=== PATIENT | male | born 2000 | race Two or more races ===

== ENCOUNTER 2023-08-15 23:01 | Emergency (ER) | payer SELFPAY ==
[2023-08-15 23:24] LABS: BASOPHILS PERCENT AUTO 0.3 % (0.0-1.0); EOSINOPHILS ABSOLUTE AUTO 0.1 K/mm3 (0.0-0.4); EOSINOPHILS PERCENT AUTO 1.1 % (0.0-6.0); HEMOGLOBIN 16.8 gm/dl (14.0-18.0); IMMATURE GRAN ABSOLUTE AUTO 0.03 K/mm3 (0.00-0.05); IMMATURE GRAN PERCENT AUTO 0.3 % (0.0-0.4); LYMPHOCYTES ABSOLUTE AUTO 3.9 K/mm3 (1.0-4.8); LYMPHOCYTES PERCENT AUTO 37.9 % (24.0-44.0); MEAN CORPUSCULAR HEMOGLOBIN 29.9 pg (28.0-32.0); MEAN CORPUSCULAR HGB CONC 35.7 g/dl (32.0-36.0); MEAN CORPUSCULAR VOLUME 83.8 fl (83.0-99.0); MEAN PLATELET VOLUME 9.6 fl (9.4-12.4); MONOCYTES ABSOLUTE AUTO 0.6 K/mm3 (0.0-0.8); MONOCYTES PERCENT AUTO 6.1 % (0.0-8.0); NEUTROPHILS ABSOLUTE AUTO 5.6 K/mm3 (1.8-7.7); NEUTROPHILS PERCENT AUTO 54.3 % (41.0-71.0); PLATELET COUNT,PLT 324 K/mm3 (150-400); RED BLOOD CELL COUNT 5.61 M/mm3 (4.52-5.90); WHITE BLOOD CELL COUNT,WBC 10.21 K/mm3 (3.9-11.3)
[2023-08-15 23:35] LABS: INR 1.03
[2023-08-15 23:37] LABS: A/G RATIO 1.4 (1-2); ALBUMIN 4.6 g/dl (3.4-5.0); ANION GAP 22.4 (5-15); BILIRUBIN TOTAL 1.4 mg/dL (0.2-1.0); BUN/CREATININE RATIO 11.8 (14-18); CALCIUM 8.2 mg/dL (8.5-10.1); CREATININE 1.1 mg/dL (0.7-1.3); EST CRCL DRUG DOSING (CG) 95.06 mL/min; ETHANOL BLOOD MEDICAL 0.24 gm% (0.00)
[2023-08-15 23:43] LABS: POTASSIUM,K 2.4 mEq/L (3.5-5.1)
[2023-08-16] MEDS ORDERED: Lactated Ringers 2,000 ML IV ONE (00:23)
[2023-08-16] MEDS ORDERED: Potassium Chloride 20 MEQ Tab.ER PO ONE (00:24)
[2023-08-16 00:37] LABS: APPEARANCE,URINE CLEAR (Clear); BILIRUBIN,URINE NEGATIVE (Negative); COLOR,URINE LIGHT YELLOW (Yellow); GLUCOSE,URINE NEGATIVE (Negative); KETONES,URINE NEGATIVE (Negative); LEUKOCYTE ESTERASE,URINE NEGATIVE (Negative); NITRITE,URINE NEGATIVE (Negative); OCCULT BLOOD,URINE TRACE-LYSED (Negative); PH,URINE 6.5 (5.0-8.0); PROTEIN,URINE NEGATIVE (Negative); UROBILINOGEN,URINE 0.2 (0.2-1.0)
[2023-08-16 00:46] LABS: BACTERIA,URINE RARE /hpf (FEW); BARBITURATE SCREEN,URINE NEGATIVE (CUTOFF=200); BENZODIAZEPINES SCREEN,URINE NEGATIVE (CUTOFF=150); BUPRENORPHINE SCREEN,URINE NEGATIVE (CUTOFF=10); EPITHELIAL CELLS,URINE 0-5 /hpf (0-5); METHADONE SCREEN, URINE NEGATIVE (CUT0FF=200); METHAMPHETAMINES SCREEN, URINE NEGATIVE (CUTOFF=500); OXYCODONE SCREEN,URINE NEGATIVE (CUT0FF=100); PROPOXYPHENE SCREEN,URINE NEGATIVE (CUTOFF=300); RBC,URINE 0-5 /hpf (0-5); THC SCREEN,URINE 20 NG/ML NEGATIVE (CUTOFF=50); WBC,URINE 0-5 /hpf (0-5)
[2023-08-16 00:47] LABS: AMORPHOUS SEDIMENT,URINE RARE /hpf (NOT SEEN); MUCUS,URINE NOT SEEN /hpf (FEW)
[2023-08-16 00:59] LABS: AMPHETAMINES SCREEN, URINE NEGATIVE (CUTOFF=500)
[2023-08-16 02:29] LABS: ANION GAP 17.2 (5-15); BUN/CREATININE RATIO 18.6 (14-18); CALCIUM 8.1 mg/dL (8.5-10.1); CREATININE 0.7 mg/dL (0.7-1.3); EST CRCL DRUG DOSING (CG) 149.37 mL/min; POTASSIUM,K 3.2 mEq/L (3.5-5.1)
== END 2023-08-16 04:35 | disposition home or self-care (01) ==
LOC: JD.ED 23:01 → EDBD 23:01 → JD.ED 08-16 04:35
DX: S06.0X1A Concussion with loss of consciousness of 30 minutes or less, initial encounter (principal); S00.83XA Contusion of other part of head, initial encounter
CPT/HCPCS: 36415; 70450; 72125; 80048; 80053; 80306; 80307; 81001; 83605; 85025; 85610; 96360; 99285; A9270; J7120; 99282